=== PATIENT | female | born 1960 | race Caucasian/White ===

== ENCOUNTER 2016-09-21 12:04 | Outpatient (CLI) | payer OTHER ==
--- NOTE | 2016-09-21 22:50 | RAD ---
THORACIC SPINE TWO VIEWS 09/21/16 AP and lateral views showed no sign of fracture. There is no dislocation or disc space narrowing. De generative changes are relatively minor. Elevation of the right hemidiaphragm is present which is pr obably accentuated by the lack of a deep breath. IMPRESSION: No acute bony findings. If the patient should continue having pain, a followup MRI of the areas of i nterest could be useful. POS: HOME
--- NOTE | 2016-09-21 23:09 | RAD ---
LUMBAR SPINE THREE VIEWS 09/21/16 Comparison is made with the prior study of 10/31/14. There has been a prior posterior lumbar fusion with pedicle screws at L4-L5. Synthetic discs have be en placed at L4-L5 and L5-S1. Their positioning seems unchanged over the interval. Very minor retrol isthesis of L3 on L4 is not different than before. The disc spaces above L4 all appear normal. No fr actures, recent or remote, were appreciated. A few very minor osteophyte were seen anteriorly at T10 -T11. The SI joints appear normal. IMPRESSION: Stable exam showing no adverse change since 2014. POS: HOME
== END 2016-09-21 12:05 | disposition home or self-care (01) ==
LOC: BURRAD 12:04
PROVIDERS: ATTEND Family Medicine
DX: M54.6 Pain in thoracic spine (principal)
CPT/HCPCS: 72070; 72100

== ENCOUNTER 2017-12-20 11:42 | Outpatient (CLI) | payer OTHER ==
--- NOTE | 2017-12-20 20:34 | RAD ---
RIGHT WRIST THREE VIEWS: 12/20/17 No fracture or carpal abnormality was seen. The carpal relationship seem normal. The metacarpals appe ar intact. IMPRESSION: No significant findings. POS: HOME
== END 2017-12-20 11:43 | disposition home or self-care (01) ==
LOC: BURRAD 11:42
PROVIDERS: ATTEND Family Medicine
DX: M25.531 Pain in right wrist (principal)

== ENCOUNTER 2019-07-22 13:56 | Emergency (ER) | payer OTHER ==
--- NOTE | 2019-07-22 15:06 | CT ---
CT BRAIN NONCONTRAST: DATE: 07/22/2019 HISTORY: 59-year-old female status post acute head trauma from fall due to dizziness FINDINGS: There is no evidence of acute intra-axial or extra-axial hemorrhage. There is no midline shift or any other mass effect. There is no extra-axial fluid collection. There is no evidence of obstructive hydrocephalus. Calvarium is intact. IMPRESSION: No acute intracranial findings.
[2019-07-22 15:19] LABS: #Basophils 0.1 thou/uL (0.0-0.2); #Eosinphils 0.1 thou/uL (0.0-0.7); #Lymphocytes 1.7 thou/uL (1.20-3.40); #Monocytes 0.6 thou/uL (0.11-0.59); #Neutrophils 4.5 thou/uL (1.40-6.50); %Basophils 2.1 % (0.0-1.0); %Eosinophils 0.8 % (0.0-10.0); %Lymphocytes 24.4 % (21.0-51.0); %Monocytes 9.1 % (0.0-10.0); %Neutrophils 63.7 % (42.0-75.0); Hemoglobin 13.4 g/dL (12.0-16.0); Mean Corpuscular HGB CONC 31.5 g/dL (32.0-36.0); Mean Corpuscular Hemoglobin 29.4 pg (27.0-31.0); Mean Corpuscular Volume 93.4 fL (78.0-98.0); Mean Platelet Volume 9.6 fL (7.4-10.4); Platelet Count 251 thou/uL (130-400); RBC Distribution Width 12.1 % (11.5-14.5); Red Blood Cell (RBC) Count 4.54 mill/uL (4.20-5.40)
--- NOTE | 2019-07-22 15:28 | RAD ---
RADIOGRAPH CERVICAL SPINE 3 VIEWS: DATE: 07/22/2019 HISTORY: Cervical trauma: 59-year-old female status post fall FINDINGS: Vertebral body heights are maintained. There is no prevertebral soft tissue swelling. There is no julian dence of fracture. There is no evidence of jumped or perched facets. Mild reversal of curvature with apex at C5-6. Moderate disc space narrowing at C5-6 with prominent anterior prevertebral osteoph ytes. Rest of the disc spaces are maintained. IMPRESSION: No evidence of acute fracture or acute traumatic subluxation.
--- NOTE | 2019-07-22 15:29 | RAD ---
Radiograph thoracic spine 3 views: HISTORY: 59-year-old female with acute traumatic mid back pain after fall. FINDINGS: Vertebral body heights are maintained. No high-grade scoliosis. Elevated right hemidiaphragm. IMPRESSION: 1. No compression fracture. 2. Chronically elevated right hemidiaphragm
[2019-07-22 15:37] LABS: ALT (SGPT) 10 U/L (8-55); AST (SGOT) 9 U/L (5-34); Albumin 4.2 g/dL (3.5-5.0); Alkaline Phosphatase 64 U/L (40-110); Anion Gap 14 mmol/L (10-20); BUN (Urea Nitrogen) 9 mg/dL (9.8-20.1); Bilirubin, Total 0.4 mg/dL (0.2-1.2); Calc. Creatinine Clearance 0 mL/min (70-130); Calcium 9.2 mg/dL (7.8-10.44); Carbon Dioxide 25 mmol/L (22-29); Chloride 107 mmol/L (98-107); Estimated GFR-MDRD 78; Globulin 2.8 g/dL (2.4-3.5); Glucose 111 mg/dL (70-105); Potassium 3.6 mmol/L (3.5-5.1); Sodium 142 mmol/L (136-145)
== END 2019-07-22 15:45 | disposition home or self-care (01) ==
LOC: BURERS 13:56
DX: S09.90XA Unspecified injury of head, initial encounter (principal); R42 Dizziness and giddiness; M79.7 Fibromyalgia; Z86.73 Personal history of transient ischemic attack (TIA), and cerebral infarction without residual deficits; W01.10XA Fall on same level from slipping, tripping and stumbling with subsequent striking against unspecified object, initial encounter
CPT/HCPCS: 70450; 72040; 72070; 80053; 85025; 93005

== ENCOUNTER 2020-03-05 10:35 | Outpatient (CLI) | payer OTHER ==
--- NOTE | 2020-03-05 15:53 | RAD ---
LUMBAR SPINE THREE VIEWS: 03/05/20 Comparison is made with a 09/21/16 study. There is slight curvature to the spine, convexed right which might be positional. There has been a po sterior lumbar fusion at L4-L5 level with pedicle screws. Synthetic discs have been placed at L4-L5 a nd L5-S1. The appearance at these levels seems comparable to the prior study. There were no new gutierrez es of concern, except to say that there might be very minor disc space narrowing at L3-L4 and there a re a few more osteophytes anteriorly at the L3 level. No fracture or area of bony destruction was see n. The SI joints are symmetrical and appear normal. IMPRESSION: No acute findings. Possible slight disc space narrowing at L3-L4 and some additional osteophytes have formed at this level since 2017. POS: HOME
== END 2020-03-05 10:36 | disposition home or self-care (01) ==
LOC: BURRAD 10:35
PROVIDERS: ATTEND Family Medicine
DX: M54.16 Radiculopathy, lumbar region (principal)
CPT/HCPCS: 72100

== ENCOUNTER 2020-12-17 15:26 | Emergency (ER) | payer OTHER ==
[2020-12-17 16:23] LABS: #Lymphocytes 1.9 thou/uL (1.20-3.40); #Monocytes 0.5 thou/uL (0.11-0.59); #Neutrophils 2.1 thou/uL (1.40-6.50); %Basophils 0.8 % (0.0-1.0); %Eosinophils 0.4 % (0.0-10.0); %Lymphocytes 41.6 % (21.0-51.0); %Monocytes 11.7 % (0.0-10.0); %Neutrophils 45.4 % (42.0-75.0); Hemoglobin 12.7 g/dL (12.0-16.0); Mean Corpuscular HGB CONC 32.4 g/dL (32.0-36.0); Mean Corpuscular Volume 92.7 fL (78.0-98.0); Mean Platelet Volume 7.6 fL (7.4-10.4); Platelet Count 218 thou/uL (130-400); RBC Distribution Width 12.1 % (11.5-14.5); Red Blood Cell (RBC) Count 4.21 mill/uL (4.20-5.40); White Blood Cell (WBC) Count 4.6 thou/uL (4.8-10.8)
[2020-12-17 16:25] LABS: ALT (SGPT) 10 U/L (8-55); AST (SGOT) 18 U/L (5-34); Albumin 3.6 g/dL (3.5-5.0); Alkaline Phosphatase 67 U/L (40-110); Anion Gap 14 mmol/L (10-20); BUN (Urea Nitrogen) 12 mg/dL (9.8-20.1); Bilirubin, Total 0.4 mg/dL (0.2-1.2); Calc. Creatinine Clearance 0 mL/min (70-130); Calcium 8.6 mg/dL (7.8-10.44); Carbon Dioxide 23 mmol/L (22-29); Chloride 105 mmol/L (98-107); Globulin 3.5 g/dL (2.4-3.5); Glucose 83 mg/dL (70-105); Potassium 3.4 mmol/L (3.5-5.1); Protein, Total 7.1 g/dL (6.0-8.3); Sodium 139 mmol/L (136-145)
[2020-12-18 07:47] LABS: SARS-CoV-2 PCR by NAA DETECTED (NotDetected)
== END 2020-12-17 16:43 | disposition home or self-care (01) ==
LOC: BURERS 15:26
DX: U07.1 COVID-19 (principal); J20.8 Acute bronchitis due to other specified organisms; I10 Essential (primary) hypertension
CPT/HCPCS: 36415; 71045; 80053; 83605; 84484; 85025; 87040; 93005; 94760; U0003; U0005

== ENCOUNTER 2021-09-09 17:51 | Emergency (ER) | payer MEDICARE, OTHER ==
[2021-09-09] MEDS ORDERED: predniSONE 20 MG TAB ONE (18:10)
== END 2021-09-09 18:20 | disposition home or self-care (01) ==
LOC: BURERS 17:51
DX: L50.0 Allergic urticaria (principal); Z79.899 Other long term (current) drug therapy; I10 Essential (primary) hypertension
CPT/HCPCS: 99283; J7512